=== PATIENT | female | born 1950 | race Caucasian/White ===

== ENCOUNTER 2019-12-18 10:58 | Outpatient (CLI) | payer MEDICARE, OTHER, SELFPAY ==
--- NOTE | 2019-12-18 11:12 | MM_ITS ---
WS: [id number] SCREENING DIGITAL MAMMOGRAM WITH CAD HISTORY: SCREEN COMPARISON: 09/20/2018 and 09/10/2017 Bilateral CC and MLO views submitted. Computer aided detection analyzed. Breast composition: There are scattered areas of fibroglandular density. Mild increased asymmetry and architectural distortion in the RIGHT breast near 2:00, anterior. May be superimposed fibroglandular tissues but needs to be further evaluated. New finding since 09/20/2018. RIGHT breast: Spot compression views (CC and MLO). True ML. Ultrasound to follow if abnormality persi [place]s. MM/[place] [id number] IMPRESSION: BI-RADS: 0-Incomplete: Need additional imaging evaluation FOLLOW UP: Need Additional Imaging
== END 2019-12-18 10:59 | disposition home or self-care (01) ==
LOC: RADSHAW 11:07
PROVIDERS: PCP Family Medicine; Visit Provider Family Medicine
DX: Z12.31 Encounter for screening mammogram for malignant neoplasm of breast (principal)
CPT/HCPCS: 77067

== ENCOUNTER 2020-01-27 11:43 | Outpatient (CLI) | payer MEDICARE, OTHER, SELFPAY ==
--- NOTE | 2020-01-27 11:52 | US_ITS ---
WS: [id number] RIGHT DIGITAL MAMMOGRAPHY WITH CAD CLINICAL INFORMATION: ABNORMAL MAMMOGRAM COMPARISON: December 18, 2019. 09/20/2018 and 09/10/2017 TECHNIQUE: 3 views of the right breast were obtained. FINDINGS: Scattered fibroglandular densities of the right breast. Punctate calcifications right breast. Vascula r calcification. Again seen is the mild asymmetry in the right breast anteriorly. This persists on sp ot compression views. Ultrasound is pending. ULTRASOUND BREAST RIGHT TECHNIQUE: Ultrasound right breast focused area of concern. CLINICAL INFORMATION: ABNORMAL MAMMOGRAM COMPARISON: None. FINDINGS: Ultrasound right breast at the 11:00 to 2:00 position. Lobulated hypoechoic lesion at the 11:00 posit ion measuring 5.1 x 2.7 x 3.4 mm. This is probably benign and recommend 6 month follow-up. Incidental lymph node at the 12:00 position. US/US breast RT limited* [id number] IMPRESSION: BI-RADS: 3-Probably Benign FOLLOW UP: 6 Month Follow-up RECOMMEND 6 MONTH FOLLOW-UP RIGHT DIAGNOSTIC MAMMOGRAPHY AND ULTRASOUND.
== END 2020-01-27 11:44 | disposition home or self-care (01) ==
LOC: RADSHAW 11:50
PROVIDERS: PCP Family Medicine; Visit Provider Family Medicine
DX: R92.8 Other abnormal and inconclusive findings on diagnostic imaging of breast (principal); N64.89 Other specified disorders of breast
CPT/HCPCS: 76642; 77065

== ENCOUNTER 2020-06-08 10:44 | Outpatient (CLI) | payer MEDICARE, OTHER, SELFPAY ==
--- NOTE | 2020-06-08 11:00 | MR_ITS ---
WS: [id number] MRI/MRCP OF THE ABDOMEN WITHOUT GADOLINIUM ENHANCEMENT TECHNIQUE: Thin and thick slab MRCP, Axial T2, Coronal MRCP, Axial Dual Echo, and Axial 2-D Fiesta imaging was obtained. Coronal 2-D Fiesta imaging. CLINICAL INFORMATION: h/o cholecystectomy COMPARISON: None. FINDINGS: Prior postoperative changes cholecystectomy. No intrahepatic biliary ductal dilatation. No fluid kimmie ections in the gallbladder fossa. Normal portal vein and splenic vein. Common bile duct appears claudine l. Common bile duct tapers to the pancreatic head. Pancreas is normal in appearance. Mild chronic com pression superior endplates L3 and L4. Normal caliber abdominal aorta. Small bilateral renal cysts. MR/MR MRCP [id number] Impression: 1. Postoperative changes cholecystectomy. 2. No evidence of fluid collection in the gallbladder fossa. Normal common hugo e duct which tapers normally at the pancreatic head. 3. No intrahepatic biliary ductal dilatation. 4. Simple bilateral renal cysts. 5. Pancreatic head is normal in appearance. 6. No other significant findings.
== END 2020-06-08 10:45 | disposition home or self-care (01) ==
LOC: RADWPI 10:51
PROVIDERS: Family Provider Family Medicine; PCP Family Medicine; Visit Provider Surgery
DX: R10.11 Right upper quadrant pain (principal); Z90.49 Acquired absence of other specified parts of digestive tract; Q61.02 Congenital multiple renal cysts
CPT/HCPCS: 74181

== ENCOUNTER 2020-10-11 10:33 | Outpatient (RCR) | payer MEDICARE, OTHER, SELFPAY | END 2020-11-10 23:59 | disposition home or self-care (01) | LOC: SR3 10:33 | PROVIDERS: Family Provider Family Medicine; PCP Family Medicine; Referring Provider Physical Medicine & Rehabilitation; Visit Provider Physical Medicine & Rehabilitation | DX: I60.7 Nontraumatic subarachnoid hemorrhage from unspecified intracranial artery (principal); Z98.2 Presence of cerebrospinal fluid drainage device; R26.89 Other abnormalities of gait and mobility; R26.2 Difficulty in walking, not elsewhere classified; I60.31 Nontraumatic subarachnoid hemorrhage from right posterior communicating artery | CPT/HCPCS: 96125; 97110; 97162; 97165 ==

== ENCOUNTER 2020-11-11 06:00 | Outpatient (RCR) | payer MEDICARE, OTHER, SELFPAY | END 2020-12-10 23:59 | disposition home or self-care (01) | LOC: SR3 06:00 | PROVIDERS: Family Provider Family Medicine; PCP Family Medicine; Referring Provider Physical Medicine & Rehabilitation; Visit Provider Physical Medicine & Rehabilitation | DX: I60.31 Nontraumatic subarachnoid hemorrhage from right posterior communicating artery (principal); R26.2 Difficulty in walking, not elsewhere classified; R26.89 Other abnormalities of gait and mobility; Z98.2 Presence of cerebrospinal fluid drainage device | CPT/HCPCS: 97110 ==